=== PATIENT | male | born 1975 | race African-American/Black ===

== ENCOUNTER 2018-11-03 20:29 | Emergency (ER) | payer MEDICAID ==
[~2018-11-03] VITALS: Ht 188 cm; Wt 99.8 kg
[2018-11-03 21:17] VITALS: BP 172/99
== END 2018-11-04 03:22 | disposition left against medical advice (07) ==
LOC: EDBD 20:29 → ER 20:36
DX: M54.5 Low back pain (principal); Z53.21 Procedure and treatment not carried out due to patient leaving prior to being seen by health care provider
CPT/HCPCS: 70450; 72131